=== PATIENT | male | born 1990 | race Two or more races ===

== ENCOUNTER 2025-05-12 12:14 | Emergency (ER) | payer OTHER ==
[~2025-05-12] VITALS: Ht 180.3 cm; Wt 70.3 kg
[2025-05-12 12:55] VITALS: BP 117/78; O2SAT 97
[2025-05-12 14:14] LABS: BASO % 0.5 % (0.1-1.2); EOS # 0.04 (0.04-0.54); EOS % 0.5 % (0.7-7.0); LYMPH # 1.73 (1.18-3.74); LYMPH % 19.7 % (19.3-53.1); MEAN PLATELET VOLUME 9.50 fl (9.4-12.4); MONO # 0.79 (0.24-0.82); MONO % 9.0 % (4.7-12.5); NEUT # 6.14 (1.56-6.13); NEUT % 70.0 % (34.0-71.1); RED CELL DISTRIBUTION WIDTH 11.9 % (11.6-14.4)
[2025-05-12 14:39] LABS: INR 1.04
[2025-05-12 15:28] LABS: ALT/SGPT 43.0 U/L (12-78); AST/SGOT 21.0 U/L (15-37); BILIRUBIN TOTAL 0.56 mg/dL (0.3-1.2); BUN CREA RATIO 13.0 (7.0-25.0); CREATININE SERUM 0.97 mg/dL (0.70-1.30); GFR 87.57; GLOBULINA 3.1 G/DL (2.4-3.5); GLUCOSE FASTING 87.0 mg/dL (65-100); OSMOLALITY SERUM 279.0 MOSM/KG (275-295)
[2025-05-12] MEDS ORDERED: SALINE MIST45 ML (18:09)
[2025-05-12] MEDS ORDERED: SYSTANE ULTRA 010 ML OP (18:16)
[2025-05-12] MEDS ORDERED: PREDNISONE20 MG PO (18:16)
[2025-05-12] MEDS ORDERED: SYSTANE GEL EYE10 ML OP (18:16)
== END 2025-05-12 18:34 | disposition home or self-care (01) ==
LOC: ER 12:14
PROVIDERS: Preventive Medicine Public Health & General Preventive Medicine
DX: G51.0 Bell's palsy (principal); R53.1 Weakness